=== PATIENT | female | born 1940 | race Two or more races ===

== ENCOUNTER 2022-06-03 07:10 | Outpatient (CLI) | payer OTHER | END 2022-06-03 07:18 | disposition home or self-care (01) | LOC: TOM 07:10 | PROVIDERS: ATTEND Internal Medicine Gastroenterology | DX: K63.5 Polyp of colon (principal); R19.4 Change in bowel habit; K57.30 Diverticulosis of large intestine without perforation or abscess without bleeding; K56.51 Intestinal adhesions [bands], with partial obstruction ==